=== PATIENT | female | born 1980 ===

== ENCOUNTER 2017-11-22 19:53 | Emergency (ER) | payer BC, MEDICAID ==
[2017-11-22 19:53] VITALS: BMI 21.4
[2017-11-22 20:13] VITALS: O2SAT 100
[2017-11-22] MEDS ORDERED: Iohexol 240 (50 ml) PO STA (21:22)
[2017-11-22] MEDS ORDERED: Sodium Chloride 0.9% 1,000 ML IV STA (21:24)
[2017-11-22] MEDS ORDERED: Iohexol 240 (50 ml) ONE (21:42)
--- NOTE | 2017-11-22 22:18 | ED PDOC ---
HPI: Headache Time Seen by Provider: 11/22/17 20:28 Chief Complaint (Nursing): Flu-like Symptoms Chief Complaint (Provider): Fever History Per: Patient History/Exam Limitations: no limitations Onset/Duration Of Symptoms: Days (x 1 week) Current Symptoms Are (Timing): Still Present Additional Complaint(s): 36 year old female presents to the ED complaining of fevers for the last week , associated with body aches, headache, malaise, fatigue, nausea, and loss of appetite. Seen at [facility] and presumptuously diagnosed with the flu, patient has been taking tamiflu with no relief. She denies any cough, rhinorrhea , sore throat, vomiting, diarrhea, rash, urinary symptoms, or vaginal discharge. No recent travel. 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 Taking ibuprofen with relief of body aches, however the headache persists. She denies neck stiffness but reports some photophobia. PMD: [facility] Past Medical History Reviewed: Historical Data, Nursing Documentation, Vital Signs Vital Signs: Last Vital Signs Temp 103.4 F H 11/22/17 20:09 Pulse 126 H 11/22/17 20:09 Resp 16 11/22/17 20:09 BP 118/69 11/22/17 20:09 Pulse Ox 100 11/22/17 20:09 - Medical History PMH: No Chronic Diseases - Surgical History Surgical History: Appendectomy (2014), - Family History Family History: States: Stroke, Hypertension Other Family History: Fibromyalgia - Social History Current smoker - smoking cessation education provided: No - Immunization History Hx Tetanus Toxoid Vaccination: No Hx Influenza Vaccination: No Hx Pneumococcal Vaccination: No - Home Medications Home Medications: Ambulatory Orders Medication Instructions Recorded Acetaminophen [Tylenol 325mg tab] 650 mg PO Q4 #50 tab 11/17/17 Oseltamivir Phosphate [Tamiflu] 75 mg PO BID #10 capsule 11/17/17 Cyclobenzaprine [Cyclobenzaprine 10 mg PO Q8 PRN #20 tab 11/20/17 HCl] Ibuprofen 400 mg PO PRN PRN 11/20/17 - Allergies Allergies/Adverse Reactions: Allergies Allergy/AdvReac Type Severity Reaction Status Date / Time No Known Allergies Allergy Verified 11/22/17 20:09 Review of Systems ROS Statement: Except As Marked, All Systems Reviewed And Found Negative (as per HPI, otherwise negative) Constitutional: Positive for: Fever, Malaise, Other (Body aches, fatigue) ENT: Negative for: Nose Discharge, Nose Congestion, Throat Pain Respiratory: Negative for: Cough Gastrointestinal: Positive for: Nausea, Other (Loss of appetite). Negative for : Vomiting, Diarrhea Genitourinary Female: Negative for: Dysuria, Frequency, Vaginal Discharge Skin: Negative for: Rash Neurological: Positive for: Headache Physical Exam - Reviewed Nursing Documentation Reviewed: Yes Vital Signs Reviewed: Yes - Physical Exam Appears: Positive for: In Acute Distress ((+) tired-appearing, patient is febrile) Head Exam: Positive for: ATRAUMATIC, NORMOCEPHALIC Eye Exam: Positive for: EOMI, Normal appearance, PERRL Neck: Positive for: Painless ROM, Supple (with no meningismus) Gastrointestinal/Abdominal: Positive for: Soft, Tenderness (Exquisite right lower quadrant tenderness to palpation at McBurney's point) - Laboratory Results Result Diagrams: 11/22/17 22:15 11/22/17 22:15 - ECG O2 Sat by Pulse Oximetry: 100 (RA) Pulse Ox Interpretation: Normal Medical Decision Making Medical Decision Making: Initial Impression: Febrile illness Differential includes but is not limited to: influenza, pyelonephritis, appendicitis, dehydration, sepsis, bacteremia Time: 21:22 Initial Plan: * VBG * Blood type and screen * CMP * Lipase * Magnesium * Phosphorous * HCG, qualitative * CBC * PTT * Prothrombin time * Urine * Urine dip * Chest x-ray * Blood culture * Urine culture * Urinalysis * Zofran 8 mg IV * Tylenol 975 mg PO * Toradol 15 mg IVP * Normal saline IV 1000 ml at 1000 mls/hr * Influenza A B * Infectious Mononucleosis * Rapid strep test * Pending CT Abd/Pelvis with PO & IV contrast 00:00 Patient signed out to Dr. Collazo pending CT Scan, reassessment, final ER disposition. Scribe Attestation: Documented by Lynne Ferrer, acting as a scribe for Erica Christy MD Provider Scribe Attestation: All medical record entries made by the Scribe were at my direction and personally dictated by me. I have reviewed the chart and agree that the record accurately reflects my personal performance of the history, physical exam, medical decision making, and the department course for this patient. I have also personally directed, reviewed, and agree with the discharge instructions and disposition. Disposition - Clinical Impression Clinical Impression: Febrile illness - Patient ED Disposition Is Patient to be Admitted: Transfer of Care - Disposition Disposition: Transfer of Care Disposition Time: 00:00 Condition: FAIR Forms: [employer] (Burkinan) Patient Signed Over To: Fina Collazo
[2017-11-22 22:23] LABS: BASO % 0.2 % (0.0-2.0); EOS % 0.2 % (0.0-4.0); HEMOGLOBIN 10.5 g/dL (12.0-16.0); LYMPH # 0.5 K/uL (1.0-4.3); MEAN CORPUSCULAR HEMOGLOBIN 26.3 pg (27.0-31.0); MEAN CORPUSCULAR HGB CONC 31.7 g/dL (33.0-37.0); MEAN PLATELET VOLUME 8.6 fl (7.2-11.7); MONO # 0.6 K/uL (0.0-0.8); MONO % 6.2 % (0.0-10.0); NEUT # 9.2 K/uL (1.8-7.0); NEUT % 88.4 % (50.0-75.0); PLATELET COUNT 315 K/uL (130-400); RBC 3.99 Mil/uL (3.80-5.20); VENOUS BLOOD GAS BASE EXCESS 2.8 mmol/L (0.0-2.0); VENOUS BLOOD GAS PCO2 40 mmHg (40-60); VENOUS BLOOD GAS PO2 29 mm/Hg (30-55); VENOUS BLOOD PH 7.44 (7.32-7.43); WHITE BLOOD COUNT 10.4 K/uL (4.8-10.8)
[2017-11-22 22:30] LABS: INR 1.2 (0.9-1.2); PARTIAL THROMBOPLASTIN TIME 28.7 Seconds (25.6-37.1); PROTHROMBIN TIME 12.8 Seconds (9.8-13.1)
[2017-11-22 22:37] LABS: ALBUMIN 3.8 g/dL (3.5-5.0); ALT/SGPT 50 U/L (9-52); AST/SGOT 39 U/L (14-36); BLOOD UREA NITROGEN 11 mg/dl (7-17); CALCIUM 8.9 mg/dL (8.4-10.2); GFR AFRICAN-AMERICAN > 60; GFR NON-AFRICAN AMERICAN > 60; LIPASE 88 U/L (23-300); MAGNESIUM 2.1 MG/DL (1.6-2.3)
[2017-11-22 22:53] LABS: BANDS 2 % (0-2); LYMPHOCYTE 7 % (20-50); MONOCYTE 6 % (0-10); NEUTROPHIL 85 % (42-75); PLATELET ESTIMATE NORMAL (NORMAL); TOTAL CELLS COUNTED 100
[2017-11-22 22:54] LABS: ANISOCYTOSIS MODERATE; BURR CELLS SLIGHT; HYPOCHROMIC SLIGHT; MICROCYTOSIS SLIGHT; OVALOCYTES SLIGHT; POIKILOCYTOSIS SLIGHT
[2017-11-22 23:53] LABS: SQUAMOUS EPITHIAL 3 /hpf (0-5); URINE BACTERIA RARE (<OCC); URINE BILIRUBIN NEGATIVE (NEGATIVE); URINE BLOOD NEGATIVE (NEGATIVE); URINE CLARITY CLOUDY (Clear); URINE COLOR YELLOW (YELLOW); URINE GLUCOSE (UA) NEG (Normal); URINE LEUKOCYTE ESTERASE MOD Leu/uL (Negative); URINE NITRATE POSITIVE (NEGATIVE); URINE PROTEIN 30 mg/dL (NEGATIVE)
[2017-11-23] MEDS ORDERED: cefTRIAXone (Rocephin) 1 gm Inj IVPB STA (00:50)
--- NOTE | 2017-11-23 01:11 | ED PDOC ---
- Laboratory Results Result Diagrams: 11/22/17 22:15 11/22/17 22:15 - ECG O2 Sat by Pulse Oximetry: 100 (RA) Medical Decision Making Medical Decision Makin:00 Patient signed out to me by Dr. Christy pending CT Scan, reassessment, and final ER disposition. 3:[address] Abdomen/Pelvis w/o IV Contrast FINDINGS: Lower thorax: Small bilateral pleural effusions, with adjacent compressive atelectasis. ABDOMEN: Liver: No acute findings. The liver is enlarged. Gallbladder and bile ducts: The gallbladder is decompressed. No calcified stones. No significant intra- or extrahepatic biliary ductal dilation. Pancreas: Enhances homogeneously. No ductal dilation. No discrete mass. Spleen: No acute findings. Adrenals: No acute findings. Kidneys and ureters: No acute findings. No hydronephrosis or renal calculi. No discrete solid mass. PELVIS: Bladder: No acute findings. Reproductive: Right ovary is ill-defined and of decreased attenuation with adjacent free fluid extending into the deep pelvis. Involuting 24 mm cyst within the left ovary. Uterus is heterogeneous and nodular. Appendix: Surgically absent. ABDOMEN and PELVIS: Stomach and bowel: Oral contrast extends to the cecum, without obstruction. No mucosal thickening. Peritoneum: No significant fluid collection. No free air. Lymph nodes: No pathologically enlarged lymph nodes. Vasculature: Unremarkable. Bones: No acute fracture. IMPRESSION: The right ovary is defined and decreased attenuation with adjacent free fluid extending into the deep pelvis, for which dedicated pelvic ultrasound is suggested, if the patient is clinically able. Thank you for allowing us to participate in the care of your patient. 3:37 AM Patient made aware of (+) UA, still reporting persistent pain. Due to CT results will order US transvaginal to evaluate further. 5:54 AM US Transvaginal FINDINGS: Uterus/cervix: Unremarkable. No myometrial mass. Uterus measures 8.7 x 5.8 x 4.1 cm. Endometrial stripe measures 1.0 cm in thickness. Right ovary: Unremarkable. Normal blood flow. Right ovary measures 2.0 x 1.9 x 1.7 cm. Left ovary: Unremarkable. Normal blood flow. Left ovary measures 2.5 x 2.6 x 2.2 cm. Free fluid: No free fluid. IMPRESSION: Normal pelvic ultrasound. U/s as above. Patient has soft NT/ND abdomen on reevaluation and is tolerating po. She has no flank tenderness. She likely has some component of viral illness and uti. Will dc with antibiotics for uti and given detailed return instructions. Scribe Attestation: Documented by Faith Carlos, acting as a scribe for Fina Collazo MD. Provider Scribe Attestation: All medical record entries made by the Scribe were at my direction and personally dictated by me. I have reviewed the chart and agree that the record accurately reflects my personal performance of the history, physical exam, medical decision making, and the department course for this patient. I have also personally directed, reviewed, and agree with the discharge instructions and disposition. Disposition - Clinical Impression Clinical Impression: UTI (urinary tract infection), Influenza-like symptoms - POA Present On Arrival: None - Disposition Disposition: Routine/Home Disposition Time: 06:00 Condition: GOOD Additional Instructions: Follow-up with PMD within 2 days. Take full course of antibiotics. Return to ED if condition worsens. Prescriptions: Sulfamethoxazole/Trimethoprim [Bactrim Ds Tablet] 1 each PO BID #28 tablet Instructions: Urinary Tract Infection in Women (DC), Viral Syndrome (ED) Forms: [employer] ([place]), [facility] ED School/Work Excuse
[2017-11-23] MEDS ORDERED: Iohexol 300 100 ML IJ ONE (02:41)
[2017-11-23] MEDS ORDERED: cefTRIAXone (Rocephin) 1 gm Inj ONE (03:05)
[2017-11-23 03:29] VITALS: BP 100/59; PULSE 101; RESP 18; TEMP 98.4
--- NOTE | 2017-11-23 08:09 | US ---
HISTORY: RLQ pain, ill defined R ovary. 10/26/2017 LMP COMPARISON: None available. TECHNIQUE: Transvaginal FINDINGS: UTERUS: Measures 8.7 x 5.8 x 4.2 cm. Normal in size. Heterogeneous echotexture No fibroid or other mass lesion seen. ENDOMETRIUM: Measures 9.7 mm in diameter. Unremarkable. CERVIX: No cervical abnormality identified. RIGHT OVARY: Measures 2.0 x 1.9 x 1.7 cm. No solid mass. Normal flow. Normal well defined peripheral follicles noted LEFT OVARY: Measures 2.5 x 2.6 x 2.2 cm. No solid mass. Normal flow. Ill-defined/ marked complicated appearing follicles - left ovary is larger than the right given the clinical history of prior ill-defined right ovary and this current appearance in this 37-year-old female, physiological changes in the left ovary are favored FREE FLUID: No significant free fluid noted. OTHER FINDINGS: None. IMPRESSION: Currently the right ovary is well defined and normal appearing Currently the left ovary has mildly complicated follicles within it and appears larger than the right - these findings are attributed to physiological changes in the left ovary. Comments: Preliminary report per Vrad compatible with this report.
--- NOTE | 2017-11-23 12:08 | CT ---
PROCEDURE: CT Abdomen and Pelvis with contrast HISTORY: RLQ pain and fever COMPARISON: Comparison is made to the previous study dated 01/08/2009 TECHNIQUE: Contrast dose: 90 mL of Omnipaque 300 Radiation dose: Total exam DLP = 222.66 mGy-cm. This CT exam was performed using one or more of the following dose reduction techniques: Automated exposure control, adjustment of the mA and/or kV according to patient size, and/or use of iterative reconstruction technique. FINDINGS: LOWER THORAX: Mild bibasilar atelectasis noted. Trace pleural effusion noted bilaterally. . LIVER: Unremarkable. No gross lesion or ductal dilatation. GALLBLADDER AND BILE DUCTS: Unremarkable. PANCREAS: Unremarkable. No gross lesion or ductal dilatation. SPLEEN: Unremarkable. ADRENALS: Unremarkable. No mass. KIDNEYS AND URETERS: Unremarkable. No hydronephrosis. No solid mass. VASCULATURE: Unremarkable. No aortic aneurysm. BOWEL: Unremarkable. No obstruction. No gross mural thickening. APPENDIX: No evidence of appendicitis. PERITONEUM: Small amount of free fluid in the pelvis noted. . No evidence of free air or free fluid in the abdomen. LYMPH NODES: Unremarkable. No enlarged lymph nodes. BLADDER: Unremarkable. REPRODUCTIVE: The uterus is heterogeneous mildly enlarged may contains small fibroid. The adnexa are mildly enlarged. There is hypodensity noted in the right ovary with adjacent fluid. Findings may represent recently rupture right follicle or cyst. BONES: No acute fracture. OTHER FINDINGS: None. IMPRESSION: No evidence of cholecystitis pancreatitis or appendicitis. Trace bilateral pleural effusion noted at the lung bases of uncertain etiology. Prominent size adnexa. Possible recent rupture of cyst or follicle from right ovary. Preliminary report was submitted by Alfonso.
--- NOTE | 2017-11-23 12:45 | RAD ---
HISTORY: fever COMPARISON: 02/02/2011 TECHNIQUE: Chest PA and lateral FINDINGS: LUNGS: No active pulmonary disease. Trace left perihilar peribronchial thickening in suggested-this appearance is unchanged PLEURA: No significant pleural effusion identified. No pneumothorax apparent. CARDIOVASCULAR: Normal. OSSEOUS STRUCTURES: No significant abnormalities. VISUALIZED UPPER ABDOMEN: Normal. OTHER FINDINGS: None. IMPRESSION: No interval pathology noted
== END 2017-11-23 07:10 | disposition home or self-care (01) ==
LOC: H.ER 19:53
DX: N39.0 Urinary tract infection, site not specified (principal); J11.1 Influenza due to unidentified influenza virus with other respiratory manifestations
CPT/HCPCS: 71046; 74177; 76830; 80053; 81003; 81025; 82803; 83690; 83735; 84100; 84703; 85025; 85610; 85730; 86308; 86850; 86900; 87040; 87070; 87086; 87430; 87804; 96361; 96365; 96375; 99282; J0696; J1885; J2405; J7040; J7042; Q9966; Q9967